=== PATIENT | male | born 1985 | race Caucasian/White ===

== ENCOUNTER 2017-03-14 08:38 | Emergency (ER) | payer OTHER ==
[~2017-03-14] VITALS: Ht 165.1 cm; Wt 72.6 kg
[~2017-03-14 08:38] MED LIST: AZIT250 PO; CLOT1TC TOP; CODACE30 PO; CYCL10 PO; ERYT.5TO OD; HYDACE5 PO; HYDHCL10 PO; IBUP600 PO; IBUP800 PO; MAGCIT300 PO; METPRE4DP PO; OSEL75CA PO; PERM5TC TOP; PRED20 PO; PROM25 PO; RXCLIN PO; RXHYDACE PO; SULTRIDS PO; TOBR.3OPSO OP; TRAM50 PO
[2017-03-14] MEDS ORDERED: BACL10 PO (09:06)
[2017-03-14] MEDS ORDERED: CEPH500 PO (09:19)
== END 2017-03-14 09:26 | disposition home or self-care (01) ==
LOC: ER 08:38
DX: J02.0 Streptococcal pharyngitis (principal); G35 Multiple sclerosis; Z88.0 Allergy status to penicillin; Z88.2 Allergy status to sulfonamides; Z87.891 Personal history of nicotine dependence; Z79.899 Other long term (current) drug therapy
CPT/HCPCS: 87430; 99282

== ENCOUNTER 2017-03-21 06:51 | Emergency (ER) | payer OTHER ==
[~2017-03-21] VITALS: Ht 165.1 cm; Wt 72.6 kg
[~2017-03-21 06:51] MED LIST changes: +BACL10 PO; +CEPH500 PO
[2017-03-21] MEDS ORDERED: Mobic15 MG PO (08:37)
== END 2017-03-21 08:39 | disposition home or self-care (01) ==
LOC: ER 06:51
DX: S39.012A Strain of muscle, fascia and tendon of lower back, initial encounter (principal); Z88.0 Allergy status to penicillin; Z88.2 Allergy status to sulfonamides; Z79.899 Other long term (current) drug therapy; Z87.891 Personal history of nicotine dependence; W22.8XXA Striking against or struck by other objects, initial encounter; Y93.39 Activity, other involving climbing, rappelling and jumping off; Y99.0 Civilian activity done for income or pay
CPT/HCPCS: 99282

== ENCOUNTER → 2019-05-04 | Outpatient (CLI) | payer OTHER ==
[~2019-05-04] MED LIST changes: +Mobic15 MG PO
== END | disposition home or self-care (01) ==
LOC: LAB SRC 14:44 → LAB SHORT 14:44
DX: L03.116 Cellulitis of left lower limb (principal)
CPT/HCPCS: 87070; 87077; 87147; 87186; 87205

== ENCOUNTER → 2019-08-20 | Outpatient (CLI) | payer MEDICARE, OTHER | LOC: LAB EV 15:08 → LAB SHORT 15:08 | DX: R22.40 Localized swelling, mass and lump, unspecified lower limb (principal) | CPT/HCPCS: 87070; 87075; 87077; 87147; 87186; 87205 ==

== ENCOUNTER → 2020-01-21 | Outpatient (CLI) | payer MEDICARE, OTHER | END | disposition home or self-care (01) | LOC: LAB SHORT 19:07 → LAB 19:07 | DX: J00 Acute nasopharyngitis [common cold] (principal); Z20.828 Contact with and (suspected) exposure to other viral communicable diseases | CPT/HCPCS: U0003 ==